=== PATIENT | female | born 1950 | race Caucasian/White ===

== ENCOUNTER 2018-04-13 14:40 | Emergency (ER) | payer OTHER ==
[2018-04-13] MEDS ORDERED: SOD CHLORIDE 0.9% 1,000 ML IV (15:34)
[2018-04-13] MEDS ORDERED: ONDANSETRON 4 MG INJ IV (15:34)
[2018-04-13] MEDS ORDERED: morphine 2 MG INJ IV (15:34)
[2018-04-13] MEDS: DIAZEPAM 5 MG TAB PO (16:14)
[2018-04-13] MEDS: HYDROCODONE/APAP (5/325) TAB PO (16:14)
[2018-04-13 16:47] LABS: ADD MAN DIFF? NO
[2018-04-13 16:50] LABS: WHITE BLOOD COUNT 8.1 10^3/ul (4.8-10.8)
[2018-04-13 16:50] LABS: BASOPHILS % 0.5 % (0.0-2.0); EOSINOPHILS # 0.1 10^3/ul (0.0-0.5); EOSINOPHILS % 1.6 % (0.0-7.0); HEMATOCRIT 40.1 % (37.0-47.0); HEMOGLOBIN 12.7 g/dl (12.0-16.0); LYMPHOCYTES # 1.6 10^3/ul (0.8-2.9); LYMPHOCYTES % 19.5 % (15.0-51.0); MEAN CORPUSCULAR HGB CONC 31.7 g/dl (32.0-37.0); MEAN CORPUSCULAR VOLUME 88.5 fl (82.0-101.0); MEAN PLATELET VOLUME 11.1 fl (7.4-10.4); MONOCYTE # 0.6 10^3/ul (0.3-0.9); MONOCYTES % 7.1 % (0.0-11.0); NEUTROPHIL # 5.7 10^3/ul (1.6-7.5); NEUTROPHILS % 70.9 % (39.0-77.0); PLATELET COUNT 236 10^3/UL (140-415); RED BLOOD COUNT 4.53 10^6/ul (4.20-5.40); RED CELL DISTRIBUTION WIDTH 16.5 % (11.5-14.5)
[2018-04-13 17:11] LABS: PROTIME 12.3 Sec (11.9-14.9)
[2018-04-13 17:12] LABS: PARTIAL THROMBOPLASTIN TIME 24.5 Sec (23.0-35.0)
[2018-04-13 17:15] LABS: ALANINE AMINOTRANSFERASE 26 IU/L (13-69); ALBUMIN 3.8 g/dl (3.3-4.9); ALBUMIN/GLOBULIN RATIO 1.22; ALKALINE PHOSPHATASE 127 IU/L (42-121); AMYLASE 75 U/L (11-123); ANION GAP 7 (5-13); ASPARTATE AMINO TRANSFERASE 33 IU/L (15-46); BLOOD UREA NITROGEN 29 mg/dl (7-20); CARBON DIOXIDE 23 mmol/L (21-31); CHLORIDE 109 mmol/L (97-110); CREATININE 1.08 mg/dl (0.44-1.00); Estimated GFR 51 mL/min (>60); GLUCOSE 97 mg/dl (70-220); LIPASE 109 U/L (23-300); POTASSIUM 4.2 mmol/L (3.5-5.1); SODIUM 139 mmol/L (135-144); TOTAL PROTEIN 6.9 g/dl (6.1-8.1)
[2018-04-13 17:26] LABS: TROPONIN-I < 0.012 ng/ml (0.000-0.120)
[2018-04-13 19:00] LABS: ADD UMIC NO; UR ASCORBIC ACID NEGATIVE (NEGATIVE); UR BILIRUBIN (Dip) NEGATIVE (NEGATIVE); UR BLOOD (Dip) NEGATIVE (NEGATIVE); UR CLARITY CLEAR (CLEAR); UR COLOR YELLOW (YELLOW); UR GLUCOSE (Dip) NEGATIVE (NEGATIVE); UR KETONES (Dip) NEGATIVE (NEGATIVE); UR LEUKOCYTE ESTERASE (Dip) NEGATIVE Leu/ul (NEGATIVE); UR NITRITE (Dip) NEGATIVE (NEGATIVE); UR SPECIFIC GRAVITY (Dip) 1.021 (1.003-1.030); UR TOTAL PROTEIN (Dip) NEGATIVE (NEGATIVE); UR UROBILINOGEN (Dip) NEGATIVE (NEGATIVE)
== END 2018-04-13 20:01 | disposition home or self-care (01) ==
LOC: E/R 14:40
DX: M62.831 Muscle spasm of calf (principal); I10 Essential (primary) hypertension
CPT/HCPCS: 73501; 73510; 73550; 73551; 80053; 81003; 82150; 83690; 84484; 85025; 85610; 85730; 87086; 93971; 99285-25